=== PATIENT | female | born 1985 | race Asian ===

== ENCOUNTER → 2018-06-04 10:54 | Outpatient (CLI) | payer OTHER, SELFPAY ==
[2018-06-04 17:08] LABS: Free T3 2.8 pg/mL (2.18-3.98); T4 Free Direct 1.43 ng/dL (0.76-1.46); Thyroid Stim Hormone (TSH) 0.02 uIU/mL (0.358-3.74)
--- OUTSIDE RECORDS SUMMARY | 2018-08-06 14:53 | XMS RPT_ITS ---
:1985 Author Organization OHIP Care Team Providers Name Role Phone Cheyenne Hogan Attending Unavailable Cheyenne Hogan Primary Care Unavailable PROBLEMS PROBLEMS DATE TYPE CONDITION / CODE ATTENDING STATUS SOURCE 06/04/2018 Unknown E03.9 - Cheyenne Hogan Active [place] Hypothyroidism, Community unspecified / Hospital E03.9(ICD-10) Repository PROCEDURES PROCEDURES No Procedure Records FoundRESULTS RESULTS FREE T3 Collected: 06/04/2018 Status: F Source: [place] 11:11 AM [facility] REPOSITORY TYPE CODE TESTS RESULT OUT OF RANGE REFERENCE UNITS LAB [id number] 2.18-3.98 pg/mL Normal FREE T3 2.8 Performed By: #### L501.92653, L501.9520, L506.0400 #### [facility] [address]. [place], [place], [address] THYROID STIM HORMONE Collected: 06/04/2018 Status: F Source: [place]ULINA (TSH) 11:11 AM [facility] REPOSITORY TYPE CODE TESTS RESULT OUT OF RANGE REFERENCE UNITS LAB [id number] 0.358-3.74 uIU/mL Low TSH 0.02 Performed By: #### L501.03753, L501.9520, L506.0400 #### [facility] [address] [place], [address] T4 FREE DIRECT Collected: 06/04/2018 Status: F Source: [place] 11:11 AM [facility] REPOSITORY TYPE CODE TESTS RESULT OUT OF RANGE REFERENCE UNITS LAB [id number] 0.76-1.46 ng/dL Normal T4 FREE 1.43 DIRECT Performed By: #### L501.54743, L501.9520, L506.0400 #### [facility] [address] [place], [address] ALLERGIES ALLERGIES No Allergies Records FoundENCOUNTERS ENCOUNTERS ADMIT/DISCHARGE ACCOUNT ADMITTING ENCOUNTER LOCATION SOURCE NUMBER CLASS 06/04/2018 [id number] Ambulatory [place] [facility] ing:BFHLAB Repository PAYERS PAYERS ENCOUNTER GUARANTOR PAYER SUBSCRIBER SOURCE 06/04/2018 [facility] [id number] Insurance:COMMERCIAL [facility]EDIDOB[facility]: [id number] [id number] Repository [id number]: [phone] Date:[id number] [phone] () [place], [place] [address]JX: 06/04/2018 Secondary NOT GIVENREGINO GreenPaulina Insurance:SELF PAY [facility] Number: Effective Repository Date:2018-06-04
== END ==
PROVIDERS: Family Provider Family Medicine; PCP Family Medicine; Visit Provider Family Medicine
DX: E03.9 Hypothyroidism, unspecified (principal)
CPT/HCPCS: 36415; 84439; 84443; 84481

== ENCOUNTER → 2018-09-06 | Outpatient (CLI) | payer OTHER, SELFPAY ==
[2018-09-06 16:14] LABS: Free T3 3.1 pg/mL (2.18-3.98); T4 Free Direct 1.64 ng/dL (0.76-1.46); Thyroid Stim Hormone (TSH) 0.11 uIU/mL (0.358-3.74)
== END | disposition home or self-care (01) ==
LOC: LAB.FUTURE 11:15
PROVIDERS: Family Provider Family Medicine; PCP Family Medicine; Visit Provider Family Medicine
DX: E03.2 Hypothyroidism due to medicaments and other exogenous substances (principal)
CPT/HCPCS: 36415; 84439; 84443; 84481

== ENCOUNTER → 2018-11-22 | Outpatient (CLI) | payer OTHER, SELFPAY ==
[2018-11-22 13:35] LABS: Free T3 1.6 pg/mL (2.18-3.98); T4 Free Direct 0.79 ng/dL (0.76-1.46)
== END | disposition home or self-care (01) ==
LOC: BFHLAB 11:05
PROVIDERS: Family Provider Family Medicine; PCP Family Medicine; Visit Provider Family Medicine
DX: E03.2 Hypothyroidism due to medicaments and other exogenous substances (principal)
CPT/HCPCS: 36415; 84439; 84443; 84481

== ENCOUNTER → 2019-04-09 11:59 | Outpatient (CLI) | payer OTHER, SELFPAY ==
[2019-04-09 16:22] LABS: Free T3 2.4 pg/mL (2.18-3.98); T4 Free Direct 1.06 ng/dL (0.76-1.46); Thyroid Stim Hormone (TSH) 9.52 uIU/mL (0.358-3.74)
== END ==
PROVIDERS: Family Provider Family Medicine; PCP Family Medicine; Visit Provider Family Medicine
DX: E03.9 Hypothyroidism, unspecified (principal)
CPT/HCPCS: 36415; 84439; 84443; 84481

== ENCOUNTER → 2019-10-17 | Outpatient (CLI) | payer OTHER, SELFPAY ==
[2019-10-17 16:51] LABS: Free T3 2.2 pg/mL (2.18-3.98); T4 Free Direct 0.98 ng/dL (0.76-1.46)
== END | disposition home or self-care (01) ==
LOC: BFHLAB 11:33
PROVIDERS: PCP Family Medicine; Visit Provider Family Medicine
DX: E03.9 Hypothyroidism, unspecified (principal)
CPT/HCPCS: 36415; 84439; 84443; 84481